=== PATIENT | female | born 1985 ===

== ENCOUNTER 2016-11-03 22:54 | Emergency (ER) | payer OTHER ==
[2016-11-03 23:00] VITALS: BP 131/71; PULSE 94; RESP 20; TEMP 99.3; O2SAT 96
[2016-11-03] MEDS ORDERED: Sodium Chloride 0.9% 1,000 ML IV STA (23:39)
[2016-11-04 00:27] LABS: ALB/GLOB RATIO 1.4 (1.0-2.1); ALKALINE PHOSPHATASE 92 U/L (38-126); ALT/SGPT 22 U/L (9-52); AST/SGOT 20 U/L (14-36); BILIRUBIN,TOTAL 0.5 mg/dl (0.2-1.3); BLOOD UREA NITROGEN 18 mg/dl (7-17); CALCIUM 9.5 mg/dL (8.4-10.2); CARBON DIOXIDE 25 mmol/L (22-30); CHLORIDE 104 mmol/L (98-107); GFR AFRICAN-AMERICAN > 60; GLUCOSE,RANDOM 303 mg/dL (65-105); LIPASE 182 U/L (23-300); POTASSIUM 3.7 MMOL/L (3.6-5.0); SODIUM 142 mmol/l (132-148)
--- NOTE | 2016-11-04 00:35 | ED PDOC ---
Upper Extremity Pain/Injury Time Seen by Provider: 11/03/16 23:04 Chief Complaint (Nursing): Finger,Hand,&Wrist Chief Complaint (Provider): Right Hand Numbness History Per: Patient History/Exam Limitations: no limitations Onset/Duration Of Symptoms: Days (x3 weeks), Intermittent Episodes Current Symptoms Are (Timing): Still Present Severity: Moderate Additional Complaint(s): Alison Chung is a 31 year old female, with a past medical history of type 2 diabetes mellitus and carpal tunnel syndrome, who presents to the emergency department for the evaluation of intermittent right, third digit, hand numbness, that the patient has been experiencing for the past 3 weeks. Patient reports feeling as if the site is swollen and is non-compliant with hypoglycemic medications. Denies recent injury, chest pain, shortness of breath , fever, nausea, vomiting, diarrhea, or a cough. PMD: Mervin Kline Past Medical History Reviewed: Historical Data, Nursing Documentation, Vital Signs Vital Signs: Last Vital Signs Temp 99.3 F 11/03/16 22:57 Pulse 94 H 11/03/16 22:57 Resp 20 11/03/16 22:57 BP 131/71 11/03/16 22:57 Pulse Ox 96 11/03/16 22:57 - Medical History PMH: Diabetes (type 2) Denies: Chronic Kidney Disease Other PMH: Carpal Tunnel Syndrome - Surgical History Surgical History: Other surgeries: Ectopic - Family History Family History: States: No Known Family Hx - Social History Current smoker - smoking cessation education provided: No Ex-Smoker (has not smoked in the last 12 months): No Alcohol: None Drugs: Denies - Home Medications Home Medications: Ambulatory Orders Medication Instructions Recorded metFORMIN [glucOPHAGE] 500 mg PO TID #42 tab 11/04/16 - Allergies Allergies/Adverse Reactions: Allergies Allergy/AdvReac Type Severity Reaction Status Date / Time No Known Allergies Allergy Verified 06/18/16 19:28 Review of Systems ROS Statement: Except As Marked, All Systems Reviewed And Found Negative Constitutional: Negative for: Fever Cardiovascular: Positive for: Edema (right hand, third digit). Negative for: Chest Pain Respiratory: Negative for: Cough, Shortness of Breath Gastrointestinal: Negative for: Nausea, Vomiting, Diarrhea Neurological: Positive for: Numbness (right hand, third digit) Physical Exam - Reviewed Nursing Documentation Reviewed: Yes Vital Signs Reviewed: Yes - Physical Exam Appears: Positive for: Non-toxic, No Acute Distress Head Exam: Positive for: ATRAUMATIC, NORMOCEPHALIC Skin: Positive for: Normal Color, Warm, Dry Eye Exam: Positive for: Normal appearance, EOMI ENT: Positive for: Normal ENT Inspection. Negative for: Pharyngeal Erythema, Tonsillar Exudate, Tonsillar Swelling Neck: Positive for: Normal, Painless ROM Cardiovascular/Chest: Positive for: Regular Rate, Rhythm. Negative for: Murmur Respiratory: Positive for: Normal Breath Sounds. Negative for: Respiratory Distress Gastrointestinal/Abdominal: Positive for: Normal Exam, Soft. Negative for: Tenderness Back: Positive for: Normal Inspection. Negative for: L CVA Tenderness, R CVA Tenderness Extremity: Positive for: Normal ROM. Negative for: Tenderness, Swelling, Other (lesions) Neurologic/Psych: Positive for: Alert, Oriented - Laboratory Results Result Diagrams: 11/03/16 23:59 11/03/16 23:59 - ECG O2 Sat by Pulse Oximetry: 96 (RA) Pulse Ox Interpretation: Normal Medical Decision Making Medical Decision Makin:04 Initial Impression: 31 year old female with right hand, third digit numbness with setting of diabetes mellitus and non-compliance with hypoglycemic medications. Initial Plan: * Accucheck * CBC * CMP * Lipase * Urine Dip * Urine * Sodium Chloride 0.9% 1,000 ml IV at 1,000 mls/hr * metFORMIN 500 mg PO * Reevaluation 01:00 Labs reviewed, no significant abnormalities with exception of an elevated blood sugar. 01:00 Upon provider reevaluation patient is feeling better, is medically stable, and requires no further treatment in the emergency department at this time. Patient will be discharged home without a prescription. Counseling was provided and all questions were answered regarding diagnosis. Need for followup with Dr. Kline , the patient's primary medical doctor. Provider reinforced need for patient to comply with oral hypoglycemic regimen, as well as strict dietary observation. Patient verbalized understanding and is in agreement with the discharge plan. Return if symptoms persist or worsen. Clinical Impression: Hyperglycemia, uncontrolled Diabetes Mellitus Scribe Attestation: Documented by Benito Mcadams, acting as a scribe for Eric Mills MD. Provider Scribe Attestation: All medical record entries made by the Scribe were at my direction and personally dictated by me. I have reviewed the chart and agree that the record accurately reflects my personal performance of the history, physical exam, medical decision making, and the department course for this patient. I have also personally directed, reviewed, and agree with the discharge instructions and disposition. Disposition - Clinical Impression Clinical Impression: Diabetes mellitus - Patient ED Disposition Is Patient to be Admitted: No - Disposition Disposition: Routine/Home Disposition Time: 01:00 Condition: STABLE Prescriptions: metFORMIN [glucOPHAGE] 500 mg PO TID #42 tab Instructions: Diabetes Mellitus Type 2 in Adults (ED)
[2016-11-04 01:06] LABS: BASO % 0.3 % (0.0-2.0); EOS # 0.4 K/uL (0.0-0.7); EOS % 3.8 % (0.0-4.0); LYMPH # 4.1 K/uL (1.0-4.3); LYMPH % 38.8 % (20.0-40.0); MEAN CELL VOLUME 83.6 fl (81.0-99.0); MEAN CORPUSCULAR HEMOGLOBIN 28.5 pg (27.0-31.0); MEAN CORPUSCULAR HGB CONC 34.1 g/dL (33.0-37.0); MEAN PLATELET VOLUME 9.8 fl (7.2-11.7); MONO # 0.7 K/uL (0.0-0.8); MONO % 6.4 % (0.0-10.0); NEUT # 5.3 K/uL (1.8-7.0); NEUT % 50.7 % (50.0-75.0); NRBC % 0.1 % (0.0-0.0); RED CELL DISTRIBUTION WIDTH 12.4 % (11.5-14.5); WHITE BLOOD COUNT 10.5 K/uL (4.8-10.8)
== END 2016-11-04 01:37 | disposition home or self-care (01) ==
LOC: H.ER 22:54
DX: E11.9 Type 2 diabetes mellitus without complications (principal)

== ENCOUNTER 2016-11-24 19:23 | Emergency (ER) | payer OTHER ==
[2016-11-24 19:28] VITALS: TEMP 98; O2SAT 100
--- NOTE | 2016-11-24 19:59 | ED PDOC ---
Lower Extremity Pain/Injury Time Seen by Provider: 11/24/16 19:38 Chief Complaint (Nursing): Lower Extremity Problem/Injury Chief Complaint (Provider): Knee pain History Per: Patient Additional Complaint(s): 31 yo female, PMH of DM, presents to ED for evaluation of left knee pain sustained from a fall. Pt ambulated into ED. Past Medical History Reviewed: Nursing Documentation, Vital Signs Vital Signs: Last Vital Signs Temp 98 F 11/24/16 19:25 Pulse Resp BP Pulse Ox 100 11/24/16 19:25 - Medical History PMH: Diabetes (type 2) Denies: Chronic Kidney Disease - Surgical History Surgical History: - Family History Family History: States: Unknown Family Hx - Living Arrangements Living Arrangements: With Family - Social History Current smoker - smoking cessation education provided: No Alcohol: None Drugs: Denies - Home Medications Home Medications: Ambulatory Orders Medication Instructions Recorded metFORMIN [glucOPHAGE] 500 mg PO TID #42 tab 11/04/16 - Allergies Allergies/Adverse Reactions: Allergies Allergy/AdvReac Type Severity Reaction Status Date / Time No Known Allergies Allergy Verified 06/18/16 19:28 Review of Systems ROS Statement: Except As Marked, All Systems Reviewed And Found Negative Musculoskeletal: Positive for: Other (knee pain) Physical Exam - Reviewed Nursing Documentation Reviewed: Yes Vital Signs Reviewed: Yes - Physical Exam Appears: Positive for: Well, Non-toxic, No Acute Distress Head Exam: Positive for: ATRAUMATIC, NORMAL INSPECTION, NORMOCEPHALIC Skin: Positive for: Normal Color, Warm, DRY Eye Exam: Positive for: EOMI, Normal appearance, PERRL ENT: Positive for: Normal ENT Inspection Neck: Positive for: Normal, Painless ROM Cardiovascular/Chest: Positive for: Regular Rate, Rhythm Respiratory: Positive for: CNT, Normal Breath Sounds Gastrointestinal/Abdominal: Positive for: Normal Exam, Bowel Sounds, Soft Back: Positive for: Normal Inspection Extremity: Positive for: Normal ROM, Tenderness, Other (superficial abrasion left knee, no active bleed) Neurologic/Psych: Positive for: Alert, Oriented - ECG O2 Sat by Pulse Oximetry: 100 Medical Decision Making Medical Decision Making: Abrasion site cleaned and dressed by teletypewriter installer. XR: NAD, as read by PAOzzy Pt medicated with Motrin 600 found knee pain. RICE therapy advised Disposition - Clinical Impression Clinical Impression: Knee contusion, Abrasion - Patient ED Disposition Is Patient to be Admitted: No - Disposition Disposition: Routine/Home Disposition Time: 20:30 Condition: STABLE Instructions: Contusion in Adults (DC), Abrasion (ED) Forms: [employer] ([place]inian)
--- NOTE | 2016-11-25 07:53 | RAD ---
HISTORY: pain s/p fall, superficial abrasion COMPARISON: No prior FINDINGS: BONES: Normal. No fracture. JOINTS: Normal. No osteoarthritis. SOFT TISSUE: Normal. OTHER FINDINGS: None . IMPRESSION: Normal Bone Xray.
== END 2016-11-24 21:14 | disposition home or self-care (01) ==
LOC: H.ER 19:23
DX: S80.212A Abrasion, left knee, initial encounter (principal); W19.XXXA Unspecified fall, initial encounter; Y92.89 Other specified places as the place of occurrence of the external cause

== ENCOUNTER 2016-12-03 05:39 | Emergency (ER) | payer OTHER ==
[2016-12-03 05:55] VITALS: BP 129/77; PULSE 93; RESP 16; TEMP 98.9; O2SAT 98
--- NOTE | 2016-12-03 06:32 | ED PDOC ---
HPI: General Adult Time Seen by Provider: 12/03/16 05:48 Chief Complaint (Nursing): Anxiety Chief Complaint (Provider): Anxiety History Per: Patient History/Exam Limitations: no limitations Onset/Duration Of Symptoms: Mins Have you had recent travel within the past 21 days to any of the following countries: [place], [place], [place] or [place]?: No Current Symptoms Are (Timing): Still Present Severity: Moderate Additional History Per: Patient Additional Complaint(s): The pt is a 31yo female, PMHx of Type I DM, anxiety, neuropathy, presents to the ED for evaluation of acute sense of panic. Pt reports she had interpersonal conflict with the father of her child and reports feeling stressed and overwhelmed. Pt also reports feelin "jittery and shaky". She reports some SOB and "lump" in her throat. She reports marked improvement in her symptoms upon arrival to the ED. She denies any nausea, vomiting, diarrhea, cough, fever. Currently offers no additional medical complaints. Past Medical History Reviewed: Historical Data, Nursing Documentation, Vital Signs Vital Signs: Last Vital Signs Temp 98.9 F 12/03/16 05:47 Pulse 93 H 12/03/16 05:47 Resp 16 12/03/16 05:47 BP 129/77 12/03/16 05:47 Pulse Ox 98 12/03/16 05:47 - Medical History PMH: Anxiety, Diabetes (type 2) Denies: Chronic Kidney Disease Other PMH: neuropathy - Surgical History Surgical History: - Family History Family History: States: Unknown Family Hx - Social History Current smoker - smoking cessation education provided: No Alcohol: None Drugs: Denies - Home Medications Home Medications: Ambulatory Orders Medication Instructions Recorded metFORMIN [glucOPHAGE] 500 mg PO TID #42 tab 11/04/16 - Allergies Allergies/Adverse Reactions: Allergies Allergy/AdvReac Type Severity Reaction Status Date / Time No Known Allergies Allergy Verified 12/03/16 05:47 Review of Systems ROS Statement: Except As Marked, All Systems Reviewed And Found Negative Constitutional: Negative for: Fever Respiratory: Negative for: Cough Gastrointestinal: Negative for: Nausea, Vomiting, Diarrhea Psych: Positive for: Anxiety Physical Exam - Reviewed Nursing Documentation Reviewed: Yes Vital Signs Reviewed: Yes - Physical Exam Appears: Positive for: Well, Non-toxic, No Acute Distress Head Exam: Positive for: ATRAUMATIC, NORMAL INSPECTION, NORMOCEPHALIC Skin: Positive for: Normal Color, Warm, DRY Eye Exam: Positive for: Normal appearance Neck: Positive for: Normal Cardiovascular/Chest: Positive for: Regular Rate, Rhythm Respiratory: Positive for: Normal Breath Sounds. Negative for: Respiratory Distress Neurologic/Psych: Positive for: Alert, Oriented - ECG O2 Sat by Pulse Oximetry: 98 (RA) Pulse Ox Interpretation: Normal Medical Decision Making Medical Decision Making: Time: 637 Impression: 31yo female w/ acute panic Plan: * Pt offered crisis evaluation but declines since her symptoms have resolved since her presentation to the ED. * Pt reports she will follow up with [facility] * Pt stable upon discharge home. Scribe Attestation: Documented by Puja Hernandez acting as a scribe for Eric Mills MD. Provider Attestation: All medical record entries made by the Scribe were at my direction and personally dictated by me. I have reviewed the chart and agree that the record accurately reflects my personal performance of the history, physical exam, medical decision making, and the department course for this patient. I have also personally directed, reviewed, and agree with the discharge instructions and disposition. Disposition - Clinical Impression Clinical Impression: Anxiety attack - Disposition Referrals: [facility] [Outside] Disposition: Routine/Home Disposition Time: 06:38 Condition: STABLE Instructions: Panic Attack (ED)
== END 2016-12-03 06:37 | disposition home or self-care (01) ==
LOC: H.ER 05:39
DX: F41.1 Generalized anxiety disorder (principal); E11.9 Type 2 diabetes mellitus without complications; Z79.84 Long term (current) use of oral hypoglycemic drugs